=== PATIENT | male | born 1970 | race Caucasian/White ===

== ENCOUNTER → 2022-08-28 17:23 | Outpatient (BNVA) | payer MEDICAID, SELFPAY | PROVIDERS: Visit Provider Emergency Medicine | DX: Z02.83 Encounter for blood-alcohol and blood-drug test (principal) | CPT/HCPCS: 80307 ==

== ENCOUNTER → 2022-09-03 15:07 | Outpatient (BNVA) | payer MEDICAID, SELFPAY | PROVIDERS: Visit Provider Nurse Practitioner Family | DX: Z02.83 Encounter for blood-alcohol and blood-drug test (principal) | CPT/HCPCS: 80307 ==

== ENCOUNTER → 2022-10-06 15:41 | Outpatient (BNVA) | payer MEDICAID, SELFPAY | PROVIDERS: Visit Provider Nurse Practitioner Family | DX: Z71.51 Drug abuse counseling and surveillance of drug abuser (principal) | CPT/HCPCS: 80307 ==

== ENCOUNTER → 2022-11-28 13:26 | Outpatient (BNVA) | payer MEDICAID, SELFPAY | PROVIDERS: Visit Provider Emergency Medicine | DX: Z02.83 Encounter for blood-alcohol and blood-drug test (principal) | CPT/HCPCS: 80307 ==

== ENCOUNTER → 2022-12-20 17:24 | Outpatient (BNVA) | payer MEDICAID, SELFPAY | PROVIDERS: Visit Provider Nurse Practitioner Family | DX: Z71.51 Drug abuse counseling and surveillance of drug abuser (principal) | CPT/HCPCS: 80307 ==

== ENCOUNTER 2022-12-22 10:00 | Emergency (ER) | payer MEDICAID, SELFPAY ==
[2022-12-22 10:02] VITALS: BP 184/98; PULSE 75; TEMP 36.4; O2SAT 97; BMI 38.0
--- NOTE | 2022-12-22 10:24 | ECG_ITS ---
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 Measurements Intervals Gordon Rate: 60 P: 42 DE: 130 QRS: 54 QRSD: 86 T: 53 QT: 409 QTc: 410 Interpretive Statements SINUS RHYTHM WITH SINUS ARRHYTHMIA No previous ECG available for comparison Electronically Signed On 12-22-2022 19:07:02 LAND MANAGER by Jarrell Browning M.D. [id number]
--- NOTE | 2022-12-22 10:27 | W.ED.ABDPA2 ---
HPI - Abdominal Pain General: Chief Complaint: Abdominal Pain Stated Complaint: ABDOMINAL PAIN Time Seen by Provider: 12/22/22 10:03 Source: patient Mode of arrival: ambulatory History of Present Illness: 52-year-old male who presents to the emergency room with complaints of abdominal pain and bloating and cramping all night long he had some dark stool but he had been taking some Pepto-Bismol his stools been loose but not frankly watery. He denies hematochezia melena hematemesis or coffee-ground emesis no previous abdominal surgeries. He has previously had a hemorrhoidectomy. He does drink, when I asked him to quantify it he says it varies from beer to hard liquor but usually no more than a couple of drinks at night. He has no history of liver cirrhosis or upper GI bleed he is not have any active bright red blood bleeding overnight or this morning. No known history of diverticulitis. MD elicited complaint: abdominal pain Onset (ago): hour(s) Pain Consistency: constant Location: Diffuse Severity: moderate Quality: cramping Radiation: none Exacerbating factors: nothing Relieving factors: nothing Associated Symptoms: Reports change in stool character (Dark after taking Pepto), loose stools, nausea and poor appetite; Denies anorexia, belching, bloating, change in bowel habits, chills, coffee ground emesis, constipation, GI cramping, diarrhea, dyspepsia, dysuria, excessive flatus, fever(s), heartburn, hematochezia, hematuria, hematemesis, fecal incontinence, melena, syncope and vomiting Review of Systems Const: Denies: fever(s), chills or fatigue ENMT: Denies: throat pain, ear or mastoid pain, nasal discharge or nasal congestion Card: Denies: chest pain, palpitations, irregular heart rhythm or syncope Resp: Denies: dyspnea, productive cough or non-productive cough GI: Reports: abdominal pain, nausea and change in stool character (Dark after taking Pepto); Denies: vomiting, hematemesis, coffee ground emesis, heartburn, diarrhea, constipation, bloating, GI cramping, belching, excessive flatus, fecal incontinence, change in bowel habits, hematochezia or melena : Denies: dysuria or hematuria Skin/Breast: Denies: rash or pruritus PFSH ED PFSH: Medical History (Updated 12/22/22 @ 14:08 by Giuseppe Sauceda DO) Obesity Surgical History (Updated 12/22/22 @ 10:30 by Giuseppe Sauceda DO) H/O hemorrhoidectomy Social History (Updated 12/22/22 @ 10:30 by Giuseppe Sauceda DO) Smoking and tobacco status: never smoked Alcohol intake: current Alcohol intake frequency: 0-2 Drinks per Day Physical Exam Const: COMMON NORMALS: no acute distress GENERAL APPEARANCE: cooperative and comfortable ORIENTATION/CONSCIOUSNESS: Yes awake, Yes oriented to person, Yes oriented to place and Yes oriented to time HENMT: COMMON NORMALS: normocephalic, atraumatic and hearing grossly normal bilaterally HEAD & SCALP: normocephalic and atraumatic Resp: COMMON NORMALS: normal respiratory effort, No retractions, No use of accessory muscles and clear to auscultation bilaterally AUSCULTATION: clear to auscultation bilaterally Cardio: COMMON NORMALS: regular rate, regular rhythm and No murmurs present (Cardio) RATE: regular rate RHYTHM: regular rhythm GI: COMMON NORMALS: Soft to palpation and No hepatosplenomegaly present AUSCULTATION: Yes normoactive bowel sounds PALPATION: Yes Soft to palpation, No Tenderness to palpation present (GI), No Guarding due to palpation present (GI) and Yes No hepatosplenomegaly present Extremity: COMMON NORMALS: normal to inspection, capillary refill normal, no clubbing, cyanosis or edema, no calf tenderness and no pedal edema Neuro: SENSORIUM/ORIENTATION: Yes oriented to person, Yes oriented to place and Yes oriented to time Skin: COMMON NORMALS: no rashes or lesions noted GENERAL SKIN EXAM: no rashes or lesions noted Course Vital Signs: Vital signs: Vital Signs Temperature 97.5 F L 12/22/22 10:02 Pulse Rate 78 12/22/22 14:51 Respiratory Rate 18 12/22/22 14:51 Blood Pressure 148/81 12/22/22 14:51 Pulse Oximetry 98 12/22/22 14:51 Oxygen Delivery Me thod 12/22/22 10:02 MDM - Abdominal Pain Medical Decision Making Labs imaging and EKG reviewed. His hemoglobin is stable there is no sign of upper GI bleed his BUN is normal has not had any bright red blood per rectum. His abdominal exam benign his CT does not show any acute changes no diverticulitis appendicitis or acute gallbladder evidence of pancreatitis. He is resting comfortably is improved some after fluids we will discharge patient home Labs imaging and EKGs all reviewed with the patient. His EKG not show any acute changes. Patient vies to return if he has any further problems recommend clear liquid diet for the next 24 to 48 hours Medical Records I reviewed the patient's medical records. Lab Data I reviewed the patient's lab results. 12/22/22 09:22 12/22/22 09:22 Labs/Radiology: Radiology Impressions Abdomen/Pelvis CT 12/22/22 11:55 IMPRESSION: 1. Hepatomegaly. 2. No hydronephrosis in either kidney. 3. No obstructing renal or ureteral calculi. 4. Normal sigmoid colon. 5. Mild prominence of the prostate measuring 3.8 cm. 6. No acute findings. Laboratory Results WBC 12.1 10^3/uL (4.0-10.0) H 12/22/22 10:29 Corrected WBC Cancelled 12/22/22 09:22 RBC 5.04 10^6/uL (4.1-5.3) 12/22/22 10:29 Hgb 15.5 g/dL (11.7-16.6) 12/22/22 10:29 Hct 47.2 % (42.0-52.0) 12/22/22 10:29 MCV 93.7 fl (80-94) 12/22/22 10:29 MCH 30.8 pg (28.0-34.0) 12/22/22 10:29 MCHC 32.8 g/dL (30.0-36.0) 12/22/22 10:29 RDW 12.5 % (12.1-15.1) 12/22/22 10:29 Plt Count 329 10^3/cmm (130-400) 12/22/22 10:29 MPV 10.5 fL (7.4-10.4) H 12/22/22 10:29 Gran % Cancelled 12/22/22 09:22 Neut % (Auto) 80.8 % 12/22/22 10:29 Lymph % (Auto) 13.8 % 12/22/22 10:29 Wilkinson % (Auto) 4.6 % 12/22/22 10:29 Eos % (Auto) 0.1 % 12/22/22 10:29 Baso % (Auto) 0.3 % 12/22/22 10:29 Neut # (Auto) 9.73 10^3/uL (1.8-7.7) H 12/22/22 10:29 Lymph # (Auto) 1.7 10^3/uL (0.8-4.8) 12/22/22 10:29 Wilkinson # (Auto) 0.6 10^3/uL (0.2-0.9) 12/22/22 10:29 Eos # (Auto) 0.0 10^3/uL (0.0-0.8) 12/22/22 10:29 Baso # (Auto) 0.0 10^3/uL (0.0-0.1) 12/22/22 10:29 Absolute Gran (auto) Cancelled 12/22/22 09:22 Nucleated RBC % (auto) 0 % 12/22/22 10:29 Nucleated RBCs # 0.0 /100WBC 12/22/22 10:29 Sodium 137 mmol/L (136-145) 12/22/22 10:49 Potassium 4.4 mmol/L (3.5-5.1) 12/22/22 10:49 Chloride 102 mmol/L (98-107) 12/22/22 10:49 Carbon Dioxide 23 mmol/L (22-29) 12/22/22 10:49 Anion Gap 16.4 (5-19) 12/22/22 10:49 BUN 11 mg/dL (6-20) 12/22/22 10:49 Creatinine 0.5 mg/dL (0.7-1.2) L 12/22/22 10:49 GFR Calculation 173.9 mL/min (90-130) H 12/22/22 10:49 Glucose 105 mg/dL (65-115) 12/22/22 10:49 Calculated Osmolality 284 mOsm/kg (285-295) L 12/22/22 10:49 Calcium 9.0 mg/dL (8.5-10.5) 12/22/22 10:49 Magnesium 2.0 mg/dL (1.7-2.3) 12/22/22 10:49 Total Bilirubin 0.3 mg/dL (0.15-1.2) 12/22/22 10:49 AST 18 U/L (0-40) 12/22/22 10:49 ALT 12 U/L (0-41) 12/22/22 10:49 Alkaline Phosphatase 87 U/L (40-130) 12/22/22 10:49 Total Protein 6.8 g/dL (6.6-8.7) 12/22/22 10:49 Albumin 4.1 g/dL (3.5-5.2) 12/22/22 10:49 Globulin 2.7 g/dL (1.3-4.6) 12/22/22 10:49 Lipase 25 U/L (13-60) 12/22/22 10:49 Urine Color Yellow (Yellow) 12/22/22 11:08 Urine Appearance Clear (CLEAR) 12/22/22 11:08 Urine pH 5 (5-7) 12/22/22 11:08 Ur Specific Lincoln 1.020 (1.005-1.030) 12/22/22 11:08 Urine Protein Trace (Negative) 12/22/22 11:08 Urine Glucose (UA) Norm (Normal) 12/22/22 11:08 Urine Ketones 1+ (Negative) H 12/22/22 11:08 Urine Blood 3+ (Negative) H 12/22/22 11:08 Urine Nitrate Negative (Negative) 12/22/22 11:08 Urine Bilirubin Neg (Negative) 12/22/22 11:08 Urine Urobilinogen Norm mg/dL (Negative) 12/22/22 11:08 Ur Leukocyte Esterase Negative (Negative) 12/22/22 11:08 Urine RBC 0-4 /hpf (0-2) H 12/22/22 11:08 Urine WBC None /hpf (0-5) 12/22/22 11:08 Ur Squamous Epith Cells None /hpf (0-5) 12/22/22 11:08 Amorphous Sediment Trace /hpf 12/22/22 11:08 Urine Bacteria Trace /hpf (NONE) 12/22/22 11:08 Urine Mucus 2+ /hpf 12/22/22 11:08 Discharge Plan Discharge Patient Disposition: Home Clinical Impression: Abdominal pain Prescriptions: No Action No Known Home Medications Discharge Orders: Discharge ED (Routine); Ordered 12/22/22 Ordered By: Giuseppe Sauceda Discharge Diet: Regular Discharge Activity: Increase activity as tolerated Patient Instructions: Abdominal Pain (ED), Opioid Safety, Pain Management Activity Restrictions/Additional Instructions: You were seen today for abdominal pain. There were no significant findings on your labs or the CT of your abdomen. Recommend clear liquid diet for next 24 hours advance as tolerated. Coding Level of Care Code ED Extender for Luis Enrique Bernal
[2022-12-22 10:33] LABS: Basophils % 0.3 %; Eosinophils % 0.1 %; Hematocrit 47.2 % (42.0-52.0); Hemoglobin 15.5 g/dL (11.7-16.6); Lymphocytes # 1.7 10^3/uL (0.8-4.8); Lymphocytes % 13.8 %; Mean Corpuscular HGB Conc 32.8 g/dL (30.0-36.0); Mean Corpuscular Hemoglobin 30.8 pg (28.0-34.0); Mean Corpuscular Volume 93.7 fl (80-94); Mean Platelet Volume 10.5 fL (7.4-10.4); Monocytes # 0.6 10^3/uL (0.2-0.9); Monocytes % 4.6 %; Neutrophils # 9.73 10^3/uL (1.8-7.7); Neutrophils % 80.8 %; Nucleated Red Blood Cells % 0 %; Platelet Count 329 10^3/cmm (130-400); Red Blood Count 5.04 10^6/uL (4.1-5.3); Red Cell Distribution Width 12.5 % (12.1-15.1); White Blood Count 12.1 10^3/uL (4.0-10.0)
[2022-12-22] MEDS: ondansetron 2 mg/ML SDV 2 mL 4 MG IVP (10:45)
[2022-12-22] MEDS: sodium chloride 0.9% 1,000 ML 999 ML IV (10:45)
[2022-12-22 11:12] VITALS: BP 153/63
[2022-12-22 11:40] LABS: Add Urine Microscopic? YES; Bilirubin Urine Neg (Negative); Blood Urine 3+ (Negative); Glucose Urine UA Norm (Normal); Ketones Urine 1+ (Negative); Leukocyte Esterase Urine Negative (Negative); Nitrate Urine Negative (Negative); Protein Urine Trace (Negative); Urine Appearance Clear (CLEAR); Urine Color Yellow (Yellow); Urobilinogen Urine Norm (Negative); pH Urine 5 (5-7)
[2022-12-22 11:41] LABS: Add Urine Culture? No; Amorphous Sediment Urine TRACE /hpf; Bacteria Urine TRACE /hpf; Mucus Urine 2+ /hpf; RBC Urine 0-4 /hpf (0-2)
[2022-12-22 11:47] LABS: Alanine Aminotransferase 12 U/L (0-41); Albumin Level 4.1 g/dL (3.5-5.2); Alkaline Phosphatase 87 U/L (40-130); Anion Gap 16.4 (5-19); Aspartate Amino Transferase 18 U/L (0-40); Blood Urea Nitrogen 11 mg/dL (6-20); Carbon Dioxide 23 mmol/L (22-29); Chloride 102 mmol/L (98-107); Globulin 2.7 g/dL (1.3-4.6); Glomerular Filtration Rate 173.9 mL/min (90-130); Glucose 105 mg/dL (65-115); Lipase 25 U/L (13-60); Osmolality Calculated 284 mOsm/kg (285-295); Potassium 4.4 mmol/L (3.5-5.1); Sodium 137 mmol/L (136-145); Total Bilirubin 0.3 mg/dL (0.15-1.2); Total Protein 6.8 g/dL (6.6-8.7)
--- NOTE | 2022-12-22 11:55 | CT_ITS ---
WS: [id number] CT ABDOMEN PELVIS TECHNIQUE: Noncontrast CT of the abdomen and pelvis with coronal and sagittal reformatted images. CLINICAL INFORMATION: flank pain COMPARISON: None. DLP: 1065.[address] scans at [facility] use at least one of these dose optimization techniques: automated e xposure control; mA and/or kV adjustment per patient size (includes targeted exams where dose is matc hed to clinical indication); or iterative reconstruction. FINDINGS: Lung bases are well aerated. Hepatomegaly. Noncontrast liver is otherwise normal. Normal noncontrast spleen. Normal GE junction. Normal noncontrast pancreas. Adrenal glands are normal. Normal caliber ab dominal aorta. Aortic calcification. Noncontrast gallbladder appears normal. Adrenal glands are normal. No hydronephrosis in either kidney. No obstructing renal or ureteral calcu li. Normal caliber abdominal aorta. Aortic calcification. Normal appendix in the RIGHT lower quadrant Normal sigmoid colon. No evidence of high-grade small or large bowel obstruction. Slightly enlarged c alcified prostate measuring 3.8 cm. Urine distended bladder. Normal lumbar spine. CT/CT kidney stone [id number] IMPRESSION: 1. Hepatomegaly. 2. No hydronephrosis in either kidney. 3. No obstructing renal or ureteral calculi. 4. Normal sigmoid colon. 5. Mild prominence of the prostate measuring 3.8 cm. 6. No acute findings.
[2022-12-22 12:55] VITALS: BP 120/82; PULSE 56; O2SAT 96
[2022-12-22 14:18] VITALS: BP 148/81; PULSE 78; RESP 18; O2SAT 98
[2022-12-22 14:51] VITALS: BP 148/81; PULSE 78; RESP 18; O2SAT 98
== END 2022-12-22 14:52 | disposition home or self-care (01) ==
PROVIDERS: Emergency Provider Family Medicine
DX: R10.9 Unspecified abdominal pain (principal); R16.0 Hepatomegaly, not elsewhere classified
CPT/HCPCS: 36415; 74176; 80053; 81001; 83690; 83735; 85025; 93005; 96361; 96374; 99285; J2405; J7030

== ENCOUNTER → 2022-12-25 13:16 | Outpatient (BNVA) | payer MEDICAID, SELFPAY | PROVIDERS: Visit Provider Emergency Medicine | DX: Z02.83 Encounter for blood-alcohol and blood-drug test (principal) | CPT/HCPCS: 80307; 87491 ==